=== PATIENT | female | born 1980 | race Caucasian/White ===

== ENCOUNTER 2016-06-08 15:54 | Emergency (ER) | payer OTHER ==
[~2016-06-08] VITALS: Ht 157.5 cm; Wt 80.8 kg
[~2016-06-08 15:54] MED LIST: ACID REDUCER 1150 MG PO
[2016-06-08 17:39] LABS: HEMATOCRIT 40.5 % (36.0-46.0); MCH 27.8 PG (29.0-34.0); MCHC 32.6 G/DL (30.0-36.0); MCV 85.3 FL (83-99); MEAN PLAT.VOLUME 9.4 uM^3 (9.5-12.4); PLATELET COUNT 331 K/uL (156-360); RBC DIS.WIDTH-CV 13.5 % (11.8-14.6); RBC DIS.WIDTH-SD 41.2 % (39-53); RED BLOOD COUNT 4.75 M/uL (3.80-5.20); WHITE BLOOD COUNT 9.8 K/uL (4.1-10.2)
[2016-06-08 17:51] LABS: CHLORIDE 110 mEq/L (99-109); SODIUM 141 mEq/L (136-147)
[2016-06-08 17:53] LABS: D-DIMER ELISA 0.17 mg/L FEU (< 0.57); GLUCOSE 104 mg/dL (70-99)
[2016-06-08 17:54] LABS: ANION GAP 11 MEQ/L (2-14)
[2016-06-08 17:55] LABS: TOTAL BILIRUBIN 0.2 mg/dL (0.0-1.0)
[2016-06-08 17:57] LABS: ALKALINE PHOSPHATASE 84 IU/L (3-129); GFR ESTIMATE (CALCULATED) > 59 mL/min/
[2016-06-08 17:58] LABS: UREA NITROGEN (BUN) 15 mg/dL (9-23)
[2016-06-08 18:00] LABS: LIPASE 28 U/L (1.0-51.0); TROP-I INTERPRETATION NEGATIVE; TROPONIN-I < 0.01 ng/mL (0.0-0.30)
[2016-06-08 18:06] LABS: QUANTITATIVE HCG < 4.0 MIU/ML
[2016-06-08 20:20] VITALS: BP 120/83
== END 2016-06-08 20:22 | disposition home or self-care (01) ==
LOC: EME 15:54
PROVIDERS: Physician Assistant
DX: R07.9 Chest pain, unspecified (principal)
CPT/HCPCS: 71020; 80053; 83690; 84443; 84484; 84702; 85027; 85379; 93005; 99281; 99284

== ENCOUNTER 2016-11-15 15:28 | Emergency (ER) | payer OTHER ==
[~2016-11-15] VITALS: Ht 157.5 cm; Wt 80.9 kg
[2016-11-15] MEDS ORDERED: TYLENOL EXTRA500 MG PO ×2 (15:58→15:59)
[2016-11-15] MEDS ORDERED: VALIUM5 MG PO (16:50)
[2016-11-15] MEDS ORDERED: ULTRAM50 MG PO (16:50)
[2016-11-15 17:11] VITALS: BP 142/89
== END 2016-11-15 17:12 | disposition home or self-care (01) ==
LOC: EME 15:28
DX: M54.89 Other dorsalgia (principal); Z91.81 History of falling; Z87.891 Personal history of nicotine dependence
CPT/HCPCS: 99281; 99283